=== PATIENT | female | born 2005 | race African-American/Black ===

== ENCOUNTER 2024-03-06 01:47 | Inpatient (IN) | payer BC ==
[~2024-03-06 01:47] MED LIST: Bupivacaine 0.25% 10 ML SDV ONE
[2024-03-06] MEDS ORDERED: Lidocaine 1% 50 ML MDV INJECT PRN (12:02)
[2024-03-06 12:47] LABS: BASOPHILS PERCENT AUTO 0.2 % (0.0-1.0); EOSINOPHILS ABSOLUTE AUTO 0.1 K/mm3 (0.0-0.7); EOSINOPHILS PERCENT AUTO 0.6 % (0.0-5.0); HEMATOCRIT 33.3 % (37.0-47.0); HEMOGLOBIN 10.6 gm/dl (12.0-16.0); IMMATURE GRAN ABSOLUTE AUTO 0.06 K/mm3 (0.00-0.05); IMMATURE GRAN PERCENT AUTO 0.4 % (0.0-0.4); LYMPHOCYTES ABSOLUTE AUTO 2.3 K/mm3 (2.0-8.8); LYMPHOCYTES PERCENT AUTO 16.2 % (50.0-65.0); MEAN CORPUSCULAR HEMOGLOBIN 26.4 pg (28.0-32.0); MEAN CORPUSCULAR HGB CONC 31.8 g/dl (32.0-36.0); MEAN PLATELET VOLUME 9.3 fl (9.4-12.3); NEUTROPHILS ABSOLUTE AUTO 10.5 K/mm3 (1.5-8.5); NEUTROPHILS PERCENT AUTO 75.6 % (35.0-45.0); PLATELET COUNT,PLT 411 K/mm3 (150-400); RED BLOOD CELL COUNT 4.01 M/mm3 (4.10-5.30)
[2024-03-06] MEDS: Misoprostol 25 MCG (1/4 of 100 MCG) Tab PO ONE ×2 (13:02→17:20)
[2024-03-06] MEDS: Acetaminophen 325 MG Tab PO ONE (14:39)
[2024-03-06] MEDS ORDERED: diphenhydrAMINE 50 MG/ML SDV IVPUSH PRN (15:09)
[2024-03-06] MEDS ORDERED: ePHEDrine 50 MG/ML SDV IVPUSH PRN (15:09)
[2024-03-06] MEDS: Lactated Ringers 1,000 ML IV SCH (19:47)
[2024-03-06] MEDS: Bupivacaine/fentaNYL/NS 100 ML Bag EPIDUR PRN (19:51)
[2024-03-06] MEDS: fentaNYL 100 MCG/2 ML SDV EPIDUR PRN (19:51)
[2024-03-06] MEDS: Nalbuphine 10 MG/1 ML Vial IM ONE (21:29)
[2024-03-06] MEDS: Oxytocin/0.9 % Sodium Chloride 30 UNIT/500 ML BAG IV SCH (21:45)
[2024-03-07] MEDS: Ondansetron 4 MG/2 ML SDV IVPUSH PRN (00:44)
[2024-03-07] MEDS ORDERED: Sodium Chloride 0.9% 10 ML Syringe FLUSH PRN (01:06)
[2024-03-07] MEDS: Sodium Chloride 0.9% 10 ML Syringe FLUSH SCH (01:09)
[2024-03-07] MEDS: Citric Acid/Sodium Citrate Solution 30 ML Cup PO ONE (01:11)
[2024-03-07] MEDS: Metoclopramide 10 MG/2 ML SDV IVPUSH ONE (01:12)
[2024-03-07] MEDS ORDERED: Lactated Ringers 1,000 ML IV SCH (01:15)
[2024-03-07] MEDS: Azithromycin 500 MG in Sodium Chloride 0.9% 250 ML IV ONE (01:16)
[2024-03-07] MEDS ORDERED: ceFAZolin 2 GM Vial ONE (01:30)
[2024-03-07] MEDS ORDERED: Lactated Ringers 1,000 ML ONE (01:44)
[2024-03-07] MEDS ORDERED: Morphine PF 10 MG/10 ML SDV ONE (01:46)
[2024-03-07] MEDS ORDERED: ePHEDrine 50 MG/ML SDV ONE (01:50)
[2024-03-07] MEDS ORDERED: Ketorolac 30 MG/ML SDV ONE (01:55)
[2024-03-07] MEDS ORDERED: Lidocaine 2% with EPINEPHrine 1:200,000 20 ML SDV ONE (01:58)
[2024-03-07] MEDS ORDERED: ePHEDrine 50 MG/ML SDV IVPUSH PRN (03:30)
[2024-03-07] MEDS ORDERED: Naloxone 0.4 MG/ML SDV IVPUSH PRN (03:30)
[2024-03-07] MEDS ORDERED: Dextrose 5%-Lactated Ringers 1,000 ML IV SCH (03:30)
[2024-03-07] MEDS: diphenhydrAMINE 50 MG/ML SDV IVPUSH PRN (05:24)
[2024-03-07] MEDS: Acetaminophen/oxyCODONE 325-5 MG Tab PO PRN ×2 (05:25→10:12)
[2024-03-07 07:08] LABS: BASOPHILS PERCENT AUTO 0.1 % (0.0-1.0); HEMATOCRIT 28.7 % (37.0-47.0); HEMOGLOBIN 9.3 gm/dl (12.0-16.0); IMMATURE GRAN ABSOLUTE AUTO 0.11 K/mm3 (0.00-0.05); IMMATURE GRAN PERCENT AUTO 0.5 % (0.0-0.4); LYMPHOCYTES ABSOLUTE AUTO 2.3 K/mm3 (2.0-8.8); LYMPHOCYTES PERCENT AUTO 10.6 % (50.0-65.0); MEAN CORPUSCULAR HEMOGLOBIN 27.1 pg (28.0-32.0); MEAN CORPUSCULAR HGB CONC 32.4 g/dl (32.0-36.0); MEAN CORPUSCULAR VOLUME 83.7 fl (83.0-99.0); MEAN PLATELET VOLUME 9.2 fl (9.4-12.3); MONOCYTES ABSOLUTE AUTO 1.5 K/mm3 (0.1-1.4); NEUTROPHILS ABSOLUTE AUTO 17.6 K/mm3 (1.5-8.5); NEUTROPHILS PERCENT AUTO 81.8 % (35.0-45.0); PLATELET COUNT,PLT 397 K/mm3 (150-400); RED BLOOD CELL COUNT 3.43 M/mm3 (4.10-5.30); WHITE BLOOD CELL COUNT,WBC 21.53 K/mm3 (4.5-13.5)
[2024-03-07] MEDS: Ketorolac 30 MG/ML SDV IVPUSH SCH (09:00)
[2024-03-07] MEDS ORDERED: Sodium Chloride 0.9% 10 ML Syringe FLUSH SCH (09:00)
[2024-03-07] MEDS: ceFAZolin 2 GM in Sodium Chloride 0.9% 50 ML IV ONE (09:08)
[2024-03-08] MEDS: Ibuprofen 600 MG Tab PO SCH (03:32)
[2024-03-08 06:21] LABS: BASOPHILS PERCENT AUTO 0.2 % (0.0-1.0); EOSINOPHILS ABSOLUTE AUTO 0.2 K/mm3 (0.0-0.7); EOSINOPHILS PERCENT AUTO 1.3 % (0.0-5.0); HEMATOCRIT 27.3 % (37.0-47.0); HEMOGLOBIN 8.6 gm/dl (12.0-16.0); IMMATURE GRAN PERCENT AUTO 0.6 % (0.0-0.4); LYMPHOCYTES ABSOLUTE AUTO 2.7 K/mm3 (2.0-8.8); LYMPHOCYTES PERCENT AUTO 15.6 % (50.0-65.0); MEAN CORPUSCULAR HGB CONC 31.5 g/dl (32.0-36.0); MEAN CORPUSCULAR VOLUME 85.8 fl (83.0-99.0); MEAN PLATELET VOLUME 9.4 fl (9.4-12.3); MONOCYTES ABSOLUTE AUTO 1.2 K/mm3 (0.1-1.4); MONOCYTES PERCENT AUTO 6.8 % (2.0-10.0); NEUTROPHILS PERCENT AUTO 75.5 % (35.0-45.0); PLATELET COUNT,PLT 357 K/mm3 (150-400); RED BLOOD CELL COUNT 3.18 M/mm3 (4.10-5.30); WHITE BLOOD CELL COUNT,WBC 17.23 K/mm3 (4.5-13.5)
[2024-03-08] MEDS: Docusate Sodium 100 MG Cap PO PRN (21:38)
== END 2024-03-09 13:55 | disposition home or self-care (01) | DRG 540 ==
LOC: JD.OB 01:47 → OBSVTOIN 03-07 01:47 → JD.OB 03-07 01:48
PROVIDERS: ADMIT Obstetrics & Gynecology; ATTEND Obstetrics & Gynecology
PROC: 10D00Z1 Extraction of Products of Conception, Low, Open Approach (ICD-10-PCS; principal; 2024-03-07 01:00)
DX: O76 Abnormality in fetal heart rate and rhythm complicating labor and delivery (principal); Z3A.40 40 weeks gestation of pregnancy; Z37.0 Single live birth; O62.1 Secondary uterine inertia
CPT/HCPCS: 01967; 01968; 36415; 59025; 85025; 86592; 86850; 86900; 86901; 99140; A9270-GY; J0456; J0665; J0690; J1200; J1885; J2274; J2405; J2765; J3010; J3490; J7050; J7120; J7999